=== PATIENT | female | born 1990 | race African-American/Black ===

== ENCOUNTER 2016-11-12 11:56 | Emergency (ER) | payer OTHER ==
[2016-11-12 12:12] VITALS: BP 163/91
[2016-11-12 12:49] LABS: BILIRUBIN,URINE NEGATIVE (NEG); GLUCOSE,URINE NEGATIVE (NEG); NITRITE,URINE NEGATIVE (NEG); PROTEIN,URINE NEGATIVE (NEG-TRACE)
[2016-11-12 12:59] LABS: BACTERIA,URINE FEW /HPF (0-FEW); RBC,URINE 0 /HPF (0-2); SQUAMOUS EPITHELIAL CELL,UR FEW /LPF; WBC,URINE 0 /HPF (0-4)
--- NOTE | 2016-11-12 13:00 | PHYS DOC ---
Past Medical History Past Medical History: Other Additional Past Medical Histor: bilat lung clot-PE Past Surgical History: No Surgical History Alcohol Use: Occasionally Drug Use: None Adult General Chief Complaint Chief Complaint: VAGINAL PROBLEM HPI HPI Patient is a 26 year old female presents emergency department stating that she' s been having vaginal itching. She denies any vaginal discharge. She is concern for herpes. She states that she has sexually active with one partner. She denies any herpes lesions or any history of herpes for herself. She states that her partner did not have any lesions that she knows of. Patient states that she had tried to use Monistat in which she had mixed to old Monistat together and place her on her labia's and had developed itching and irritation. Patient denies any nausea vomiting fever or chills. She denies any vaginal discharge. Review of Systems Review of Systems Constitutional: Denies fever or chills [] Eyes: Denies change in visual acuity, redness, or eye pain [] HENT: Denies nasal congestion or sore throat [] Respiratory: Denies cough or shortness of breath [] Cardiovascular: No additional information not addressed in HPI [] GI: Denies abdominal pain, nausea, vomiting, bloody stools or diarrhea [] : Denies dysuria or hematuria. Complaint of vaginal itching Musculoskeletal: Denies back pain or joint pain [] Integument: Denies rash or skin lesions [] Neurologic: Denies headache, focal weakness or sensory changes [] Endocrine: Denies polyuria or polydipsia [] Allergies Allergies Allergies Coded Allergies Type Severity Reaction Last Updated Verified No Known Drug Allergies 09/28/13 No Physical Exam Physical Exam Constitutional: Well developed, well nourished, no acute distress, non-toxic appearance. [] HENT: Normocephalic, atraumatic, bilateral external ears normal, oropharynx moist, no oral exudates, nose normal. [] Eyes: PERRLA, EOMI, conjunctiva normal, no discharge. [] Neck: Normal range of motion, no tenderness, supple, no stridor. [] Cardiovascular:Heart rate regular rhythm, no murmur [] Lungs & Thorax: Bilateral breath sounds clear to auscultation [] Skin: Warm, dry, no erythema, no rash. [] Back: No tenderness Extremities: No tenderness, no cyanosis, no clubbing, ROM intact, no edema. [] Neurologic: Alert and oriented X 3, normal motor function, normal sensory function, no focal deficits noted. [] Psychologic: Affect normal, judgement normal, mood normal. [] Vaginal exam completed with Fara RN at bedside. Speculum exam patient with white to yellow vaginal discharge noted. No lesions noted on the outer part of the labia's. No rash noted. Manual exam patient with slight adnexal tenderness on the right, no CMT tenderness noted. Current Patient Data Vital Signs Vital Signs Date Time Temp Pulse Resp B/P (MAP) Pulse Ox O2 Delivery O2 Flow Rate FiO2 11/12/16 12:12 98.5 94 18 163/91 (115) 98 Room Air 98.5 Lab Values Laboratory Tests Test 11/12/16 11:27 11/12/16 12:00 POC Urine HCG, Qualitative Hcg negative (Negative) Urine Collection Type Unknown Urine Color Yellow Urine Clarity Cloudy Urine pH 7.0 Urine Specific Coffey >=1.030 Urine Protein Negative mg/dL (NEG-TRACE) Urine Glucose (UA) Negative mg/dL (NEG) Urine Ketones (Stick) Negative mg/dL (NEG) Urine Blood Negative (NEG) Urine Nitrite Negative (NEG) Urine Bilirubin Negative (NEG) Urine Urobilinogen Dipstick 1.0 mg/dL (0.2 mg/dL) Urine Leukocyte Esterase Negative (NEG) Urine RBC 0 /HPF (0-2) Urine WBC 0 /HPF (0-4) Urine Squamous Epithelial Cells Few /LPF Urine Bacteria Few /HPF (0-FEW) Microbiology 11/12/16 Wet Prep - Final, Complete EKG EKG [] Radiology/Procedures Radiology/Procedures [] Course & Med Decision Making Course & Med Decision Making Pertinent Labs and Imaging studies reviewed. (See chart for details) Urine was negative for urinary tract infection, wet prep was positive for bacterial vaginosis. She does not have a yeast or any trichomonas noted in the wet prep. Patient's cultures were sent for GC and chlamydia. She has refused or declined to be treated for STDs at this time. Patient will be discharged home on Flagyl with recommendations to avoid alcohol with the medication. Patient will be discharged home in stable condition signs symptoms to return back to emergency prior been provided. All questions and concerns been answered at patient's bedside. [] Dragon Disclaimer Dragon Disclaimer This electronic medical record was generated, in whole or in part, using a voice recognition dictation system. Departure Departure Impression: Primary Impression: Bacterial vaginosis Disposition: 01 HOME, SELF-CARE Condition: STABLE Referrals: HARRY BRIZUELA MD (PCP) Patient Instructions: Bacterial Vaginosis, [id number] Additional Instructions: Urine was negative for any urinary tract infections. No identification of the yeast infection was noted. You are however being treated for bacterial vaginosis. Activity as tolerated. Medications as prescribed. Do not drink alcohol with the Flagyl as this will cause severe abdominal pain and discomfort. Your cultures from your vaginal exam will be completed in approximately 2-3 days. You will be notified if these are positive. Follow-up with the primary care physician in the next 2 weeks. Return back to emergency prior signs symptoms of become worse. Scripts Metronidazole (FLAGYL) 500 Mg Tablet 1 TAB PO BID, #14 TAB Prov: GAURI MOREAU APRN 11/12/16 GAURI MOREAU APRN Nov 12, 2016 13:00
[2016-11-12] MEDS ORDERED: METR500T PO (13:38)
[2016-11-12] MEDS ORDERED: FLUC150T PO (13:49)
== END 2016-11-12 13:53 | disposition home or self-care (01) ==
LOC: ER 11:56
DX: N76.0 Acute vaginitis (principal); B96.89 Other specified bacterial agents as the cause of diseases classified elsewhere
CPT/HCPCS: 36415; 81001; 81025; 87491; 87591; 99284; Q0111